=== PATIENT | female | born 1990 | race Caucasian/White ===

== ENCOUNTER 2017-10-07 09:33 | Emergency (ER) | payer BC ==
[2017-10-07 10:26] LABS: Absolute Lymphocytes (CBC) 1.1 K/uL (0.7-4.9); Absolute Monocytes 0.5 K/uL (0.1-1.3); Basophils % 0.3 % (0-1.3); Eosinophils % 0.4 % (0-4.4); Hematocrit 39.1 % (36.0-45.0); Lymphocytes % 16.1 % (15.3-44.8); MCH 27.5 pg (27.0-35.0); MCV 83.4 fL (80-100); MPV 8.3 fL (7.6-11.3); Monocytes % 7.5 % (3.3-12.3); RBC Red Blood Cell Count 4.68 M/uL (3.86-4.86)
[2017-10-07] MEDS ORDERED: IBUPROFEN 400 MG TAB ONE (10:34)
[2017-10-07] MEDS ORDERED: NA CHLORIDE 0.9% 1,000 ML ONE (10:34)
[2017-10-07] MEDS ORDERED: IBUPROFEN 200 MG TAB PO ONE (10:34)
[2017-10-07 10:37] LABS: Potassium 3.3 mEq/L (3.6-5.0)
--- NOTE | 2017-10-07 10:52 | RAD REPORT ---
EXAM DESCRIPTION: RAD - Chest Pa And Lat (2 Views) - 10/07/2017 10:46 am CLINICAL HISTORY: Cough and fever COMPARISON: 09/17/2017 FINDINGS: Right sided airspace opacity is seen in the inferior right base silhouetting the right hem idiaphragmatic leaflet compatible with right lower lobe pneumonia. The heart is normal in size. No di splaced fractures. Cholecystectomy clips. IMPRESSION: Right lower lobe pneumonia.
[2017-10-07] MEDS ORDERED: CEFTRIAXONE/SWI 1gm 1 GM/10 ML SYR ONE (12:01)
[2017-10-07] MEDS ORDERED: POTASSIUM CL SA 10 MEQ TAB PO ONE (12:01)
[2017-10-07] MEDS ORDERED: AZITHROMYCIN 250 MG TAB ONE (12:01)
--- NOTE | 2017-10-07 12:02 | ER ---
Nurse's Notes [facility] Name: Liz Epperson Age: 27 yrs Sex: Female : 1990 Arrival Date: 10/07/2017 Time: 09:37 Bed 14 Private MD: Diagnosis: Pneumonia, unspecified organism Presentation: 10/07 09:48 Presenting complaint: Patient states: i was having fever since September 17, went ot my hj PCP and tested for flu and strep, came back neg; fever continued, was ordered for xray that came back neg as well; now i have cough with phlegm, green colored; last night my temp was 103.8; took tylenol but not helping;. Transition of care: patient was not received from another setting of care. Onset of symptoms was October 07, 2017. Care prior to arrival: None. 09:48 Method Of Arrival: Ambulatory 09:48 Acuity: BECKY 3 Triage Assessment: 09:52 General: Appears in no apparent distress. uncomfortable, Behavior is calm, cooperative, hj appropriate for age. Pain: Denies pain. EENT: No signs and/or symptoms were reported regarding the EENT system. Neuro: Level of Consciousness is awake, alert, obeys commands, Oriented to person, place, time, situation. Cardiovascular: Heart tones S1 S2 present Capillary refill is > 3 seconds Patient's skin is warm and dry. Rhythm is sinus tachycardia. Respiratory: Airway is patent Respiratory effort is even, unlabored, Respiratory pattern is regular, symmetrical, GI: No signs and/or symptoms were reported involving the gastrointestinal system. : No signs and/or symptoms were reported regarding the genitourinary system. Derm: No signs and/or symptoms reported regarding the dermatologic system. Musculoskeletal: No signs and/or symptoms reported regarding the musculoskeletal system. 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 - Social history:: Smoking status: Patient/guardian denies using tobacco, Patient/guardian denies using alcohol. Screenin:54 Abuse screen: Denies threats or abuse. Denies injuries from another. Nutritional hj screening: No deficits noted. Tuberculosis screening: No symptoms or risk factors identified. Fall Risk None identified. Assessment: 09:55 Reassessment: see triage assessment;'. hj 10:10 General: Appears in no apparent distress. uncomfortable, Behavior is calm, cooperative, aj1 appropriate for age, Reports fever for > 3 days. Pain: Complains of pain in generalized body aches Pain currently is 3 out of 10 on a pain scale. Quality of pain is described as aching. Neuro: Level of Consciousness is awake, alert, obeys commands, Oriented to person, place, time, situation, Speech is normal, Facial symmetry appears normal. Cardiovascular: Patient's skin is warm and dry. Respiratory: Reports cough that is productive, Airway is patent Respiratory effort is even, unlabored, Respiratory pattern is regular, symmetrical, Breath sounds are clear bilaterally. Denies shortness of breath. Respiratory:. GI: No signs and/or symptoms were reported involving the gastrointestinal system. Patient currently denies diarrhea, nausea, vomiting. : No signs and/or symptoms were reported regarding the genitourinary system. EENT: Throat is reddened bilaterally Reports nasal congestion nasal discharge. EENT:. Derm: No signs and/or symptoms reported regarding the dermatologic system. Skin is pink, warm \T\ dry. normal. Musculoskeletal: No signs and/or symptoms reported regarding the musculoskeletal system. Circulation, motion, and sensation intact. 11:15 Reassessment: Patient appears in no apparent distress at this time. No changes from aj1 previously documented assessment. Patient and/or family updated on plan of care and expected duration. Pain level reassessed. Patient is alert, oriented x 3, equal unlabored respirations, skin warm/dry/pink. 12:21 Reassessment: Patient appears in no apparent distress at this time. No changes from aj1 previously documented assessment. Patient and/or family updated on plan of care and expected duration. Pain level reassessed. Patient is alert, oriented x 3, equal unlabored respirations, skin warm/dry/pink. Vital Signs: 09:53 BP 130 / 80; Pulse 115; Resp 18; Temp 100(O); Pulse Ox 98% on R/A; Weight 91.63 kg; hj Height 5 ft. 8 in. (172.72 cm); Pain 0/10; 10:52 BP 127 / 74; Pulse 89; Resp 15; Pulse Ox 98% on R/A; mh5 12:22 BP 116 / 73; Pulse 82; Resp 18; Pulse Ox 99% ; aj1 09:53 Body Mass Index 30.71 (91.63 kg, 172.72 cm) ED Course: 09:37 Patient arrived in ED. mr 09:44 Tasneem Kruger, CHRISTELLE is PHCP. kb 09:44 Edinson Lou MD is Attending Physician. kb 09:47 Donis Dia, AB is Primary Nurse. hj 09:50 Triage completed. hj 09:54 Arm band placed on right wrist. hj 09:54 Patient has correct armband on for positive identification. Bed in low position. Call light in reach. Side rails up X 1. 10:10 No provider procedures requiring assistance completed. Initial lab(s) drawn, by tori flynn sent to lab. Inserted saline lock: 22 gauge in left antecubital area, using aseptic technique. Blood collected. 10:37 Patient moved to radiology via wheelchair. la2 10:44 X-ray completed. Patient tolerated procedure well. Patient moved back from radiology. la2 12:28 IV discontinued, intact, bleeding controlled, No redness/swelling at site. Pressure iw dressing applied. Administered Medications: 10:23 Drug: NS 0.9% 1000 ml Route: IV; Rate: 1000 ml; Site: left antecubital; aj1 10:24 Drug: Motrin 600 mg Route: PO; aj1 12:30 Follow up: Response: No adverse reaction iw 10:24 CANCELLED (Duplicate Order): Ibuprofen 600 mg PO once kb 11:48 Drug: Rocephin 1 grams Route: IV; Rate: calculated rate; Site: left antecubital; aj1 12:30 Follow up: IV Status: Completed infusion iw 11:48 Drug: Zithromax 500 mg Route: PO; aj1 12:29 Follow up: Response: No adverse reaction iw 11:48 Drug: Potassium Chloride 20 mEq Route: PO; aj1 12:29 Follow up: Response: No adverse reaction iw Outcome: 12:02 Discharge ordered by . lidia 12:28 Discharged to home ambulatory. iw 12:28 Condition: good 12:28 Discharge instructions given to patient, Instructed on discharge instructions, follow up and referral plans. medication usage, Demonstrated understanding of instructions, follow-up care, medications, Prescriptions given X 1. 12:30 Patient left the ED. Signatures: Tasneem Kruger, BUSINESS OFFICE REPRESENTATIVE-C BUSINESS OFFICE REPRESENTATIVE-Ckb Chayo Neri RN RN Priya Hartley Irene, RN RN Donis Dia RN RN hj Martinez, Maria [facility] Theresa Gilbert
--- NOTE | 2017-10-07 12:02 | EDPHYS ---
Physician Documentation [facility] Name: Liz Epperson Age: 27 yrs Sex: Female : 1990 Arrival Date: 10/07/2017 Time: 09:37 Bed 14 Private MD: ED Physician Edinson Lou HPI: 10/07 10:56 This 27 yrs old Female presents to ER via Ambulatory with complaints of Fever.kb 10:56 The patient or guardian reports cough, that is intermittent, described as mild, with no kb sputum, flu symptoms, arthralgias, low-grade fever, myalgias. Onset: The symptoms/episode began/occurred 1 month(s) ago. Severity of symptoms: At their worst the symptoms were mild, moderate, in the emergency department the symptoms are unchanged. Modifying factors: The symptoms are alleviated by nothing, the symptoms are aggravated by nothing. Associated signs and symptoms: Pertinent positives: fever, rhinorrhea, Pertinent negatives: chest pain, diarrhea, ear ache, nausea, sore throat, vomiting. The patient has not experienced similar symptoms in the past. The patient has not recently seen a physician. 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 - Social history:: Smoking status: Patient/guardian denies using tobacco, Patient/guardian denies using alcohol. ROS: 10:41 Cardiovascular: Negative for chest pain, palpitations, and edema, Abdomen/GI: Negative kb for abdominal pain, nausea, vomiting, diarrhea, and constipation, Back: Negative for injury and pain, : Negative for injury, bleeding, discharge, and swelling, MS/Extremity: Negative for injury and deformity, Skin: Negative for injury, rash, and discoloration, Neuro: Negative for headache, weakness, numbness, tingling, and seizure. 10:41 Constitutional: Positive for chills, fatigue, fever, malaise, Negative for body aches, poor PO intake, weight loss. 10:41 ENT: Positive for rhinorrhea, sinus congestion. 10:41 Respiratory: Positive for cough, with no reported sputum, Negative for dyspnea on exertion, hemoptysis, orthopnea, pleurisy, shortness of breath, sputum production, wheezing. Exam: 10:41 Constitutional: This is a well developed, well nourished patient who is awake, alert, kb and in no acute distress. Head/Face: Normocephalic, atraumatic. Neck: Trachea midline, no thyromegaly or masses palpated, and no cervical lymphadenopathy. Supple, full range of motion without nuchal rigidity, or vertebral point tenderness. No Meningismus. Chest/axilla: Normal chest wall appearance and motion. Nontender with no deformity. No lesions are appreciated. Cardiovascular: Regular rate and rhythm with a normal S1 and S2. No gallops, murmurs, or rubs. Normal PMI, no JVD. No pulse deficits. Respiratory: Lungs have equal breath sounds bilaterally, clear to auscultation and percussion. No rales, rhonchi or wheezes noted. No increased work of breathing, no retractions or nasal flaring. Abdomen/GI: Soft, non-tender, with normal bowel sounds. No distension or tympany. No guarding or rebound. No evidence of tenderness throughout. Skin: Warm, dry with normal turgor. Normal color with no rashes, no lesions, and no evidence of cellulitis. MS/ Extremity: Pulses equal, no cyanosis. Neurovascular intact. Full, normal range of motion. Neuro: Awake and alert, GCS 15, oriented to person, place, time, and situation. Cranial nerves II-XII grossly intact. Motor strength 5/5 in all extremities. Sensory grossly intact. Cerebellar exam normal. Normal gait. 10:41 ENT: External ear(s): are unremarkable, Ear canal(s): are normal, TM's: fluid levels, on the left, Examination of the other ear shows no obvious abnormality, Nose: is normal, Mouth: is normal, Posterior pharynx: Airway: normal, Tonsils: with erythema, Uvula: normal, midline, swelling, is not appreciated, erythema, that is mild, exudate, is not appreciated. Vital Signs: 09:53 BP 130 / 80; Pulse 115; Resp 18; Temp 100(O); Pulse Ox 98% on R/A; Weight 91.63 kg; hj Height 5 ft. 8 in. (172.72 cm); Pain 0/10; 10:52 BP 127 / 74; Pulse 89; Resp 15; Pulse Ox 98% on R/A; mh5 12:22 BP 116 / 73; Pulse 82; Resp 18; Pulse Ox 99% ; aj1 09:53 Body Mass Index 30.71 (91.63 kg, 172.72 cm) hj MDM: 09:49 Patient medically screened. kb 10:41 Data reviewed: vital signs, nurses notes. Data interpreted: Pulse oximetry: on room air kb is 98 %. Interpretation: normal. 11:21 Counseling: I had a detailed discussion with the patient and/or guardian regarding: the kb historical points, exam findings, and any diagnostic results supporting the discharge/admit diagnosis, lab results, radiology results, the need for outpatient follow up, a family practitioner, to return to the emergency department if symptoms worsen or persist or if there are any questions or concerns that arise at home. 10/07 09:49 Order name: CBC with Diff kb 10/07 09:49 Order name: Basic Metabolic Panel kb 10/07 09:49 Order name: Lucas Screen Profile kb 10/07 09:52 Order name: Flu kb 10/07 09:52 Order name: Strep kb 10/07 10:27 Order name: CBC with Automated Diff; Complete Time: 10:30 EDMS 10/07 09:49 Order name: Chest Pa And Lat (2 Views) XRAY kb 10/07 10:37 Order name: Basic Metabolic Panel; Complete Time: 10:38 EDMS 10/07 10:40 Order name: Influenza Screen (A ; Complete Time: 10:40 EDMS 10/07 10:40 Order name: Group A Streptococcus Rapid Sc; Complete Time: 10:40 EDMS 10/07 10:52 Order name: RAD; Complete Time: 10:59 EDMS 10/07 11:01 Order name: Lucas Screen; Complete Time: 11:03 EDMS 10/07 09:49 Order name: IV Start; Complete Time: 09:55 kb Administered Medications: 10:23 Drug: NS 0.9% 1000 ml Route: IV; Rate: 1000 ml; Site: left antecubital; aj1 10:24 Drug: Motrin 600 mg Route: PO; aj1 12:30 Follow up: Response: No adverse reaction iw 10:24 CANCELLED (Duplicate Order): Ibuprofen 600 mg PO once kb 11:48 Drug: Rocephin 1 grams Route: IV; Rate: calculated rate; Site: left antecubital; aj1 12:30 Follow up: IV Status: Completed infusion iw 11:48 Drug: Zithromax 500 mg Route: PO; aj1 12:29 Follow up: Response: No adverse reaction iw 11:48 Drug: Potassium Chloride 20 mEq Route: PO; aj1 12:29 Follow up: Response: No adverse reaction iw Disposition: 14:00 Co-signature as Attending Physician, Edinson Lou MD I agree with the assessment and kdr plan of care. Disposition: 10/07/17 12:02 Discharged to Home. Impression: Pneumonia, unspecified organism. - Condition is Stable. - Discharge Instructions: Pneumonia, Adult, [id number]. - Prescriptions for Zithromax 500 mg Oral Tablet - take 1 tablet by ORAL route once daily for 5 days; 5 tablet. - Medication Reconciliation Form, Thank You Letter, Antibiotic Education, Prescription Opioid Use form. - Follow up: Emergency Department; When: As needed; Reason: Worsening of condition. Follow up: Private Physician; When: 2 - 3 days; Reason: Recheck today's complaints, Continuance of care, Re-evaluation by your physician. Signatures: Dispatcher [employer] EDTasneem Nixon, SHAGUFTA-C SHAGUFTA-Chayo Khan RN RN aj1 Edinson Lou MD MD [facility] Maxine Costa RN RN Donis Dia RN RN Corrections: (The following items were deleted from the chart) 10:24 10:23 Ibuprofen 600 mg PO once ordered. kb kb
== END 2017-10-07 12:30 | disposition home or self-care (01) ==
LOC: ER 09:33
DX: J18.9 Pneumonia, unspecified organism (principal); E03.9 Hypothyroidism, unspecified; Z91.040 Latex allergy status; Z91.048 Other nonmedicinal substance allergy status
CPT/HCPCS: 36415; 71046; 80048; 85025; 86308; 87070; 87081; 87804; 96365; 99284; J0696; J7030

== ENCOUNTER 2018-04-03 20:08 | Emergency (ER) | payer BC ==
--- NOTE | 2018-04-03 21:09 | ER ---
Nurse's Notes [facility] Name: Liz Epperson Age: 28 yrs Sex: Female : 1990 Arrival Date: 04/03/2018 Time: 20:13 Bed 25 Private MD: Alejandrina Wood Diagnosis: Cellulitis of face Presentation: 04/03 20:18 Presenting complaint: Patient states: Abscess to left cheek for 3 days. Given aj Dicloxacillin. Transition of care: patient was not received from another setting of care. Onset of symptoms was April 03, 2018. Risk Assessment: Do you want to hurt yourself or someone else? Patient reports no desire to harm self or others. Initial Sepsis Screen: Does the patient meet any 2 criteria? No. Patient's initial sepsis screen is negative. Does the patient have a suspected source of infection? No. Patient's initial sepsis screen is negative. Care prior to arrival: None. 20:18 Method Of Arrival: Ambulatory aj 20:18 Acuity: BECKY 3 aj Triage Assessment: 20:20 General: Appears in no apparent distress. comfortable, Behavior is calm, cooperative, aj appropriate for age. Pain: Complains of pain in left zygomatic area. Neuro: Level of Consciousness is awake, alert, obeys commands, Oriented to person, place, time, situation, Appropriate for age. Respiratory: Airway is patent Respiratory effort is even, unlabored, Respiratory pattern is regular, symmetrical. Derm: Abscess located on left zygomatic area. 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 - Social history:: Smoking status: Patient/guardian denies using tobacco. - Ebola Screening: : Patient negative for fever greater than or equal to 101.5 degrees Fahrenheit, and additional compatible Ebola Virus Disease symptoms Patient denies exposure to infectious person Patient denies travel to an Ebola-affected area in the 21 days before illness onset No symptoms or risks identified at this time. Screenin/16 00:27 Abuse screen: Denies threats or abuse. Denies injuries from another. Nutritional mg2 screening: No deficits noted. Tuberculosis screening: No symptoms or risk factors identified. Fall Risk IV access (20 points). Assessment: 04/03 20:35 General: Appears uncomfortable, well groomed, well developed, well nourished, Behavior mg2 is calm, cooperative, appropriate for age. Pain: Complains of pain in face and left zygomatic area Pain currently is 10 out of 10 on a pain scale. Neuro: Level of Consciousness is awake, alert, obeys commands, Oriented to person, place, time, situation, Appropriate for age. Cardiovascular: Patient's skin is warm and dry. Respiratory: Airway is patent Respiratory effort is even, unlabored, Respiratory pattern is regular, symmetrical. GI: No signs and/or symptoms were reported involving the gastrointestinal system. : No signs and/or symptoms were reported regarding the genitourinary system. EENT: No signs and/or symptoms were reported regarding the EENT system. Derm: Abscess located on left cheek. Derm: Reports has been on Doxycycline, Bactroban s/s just getting worse. Musculoskeletal: No signs and/or symptoms reported regarding the musculoskeletal system. 22:20 Reassessment: Patient appears in no apparent distress at this time. No changes from mg2 previously documented assessment. Patient and/or family updated on plan of care and expected duration. Pain level reassessed. Patient is alert, oriented x 3, equal unlabored respirations, skin warm/dry/pink. awaiting CT results. 04/04 01:04 Reassessment: Patient appears in no apparent distress at this time. Patient and/or mg2 family updated on plan of care and expected duration. Pain level reassessed. Patient is alert, oriented x 3, equal unlabored respirations, skin warm/dry/pink. patient for discharge but still on iv antibiotic. 01:23 Reassessment: Patient appears in no apparent distress at this time. Patient and/or mg2 family updated on plan of care and expected duration. Pain level reassessed. Patient is alert, oriented x 3, equal unlabored respirations, skin warm/dry/pink. Vital Signs: 04/03 20:21 BP 128 / 69; Pulse 95; Resp 17; Temp 98.6; Pulse Ox 100% on R/A; Weight 86.18 kg; aj Height 5 ft. 8 in. (172.72 cm); 22:20 BP 101 / 60; Pulse 86; Resp 18; Pulse Ox 100% on R/A; mg2 04/04 00:26 BP 105 / 73; Pulse 77; Resp 18; Pulse Ox 100% on R/A; mg2 01:23 BP 110 / 70; Pulse 80; Resp 18; Pulse Ox 100% on R/A; Pain 0/10; mg2 04/03 20:21 Body Mass Index 28.89 (86.18 kg, 172.72 cm) aj ED Course: 04/03 20:13 Patient arrived in ED. ds1 20:14 Alejandrina Wood is Private Physician. ds1 20:19 Triage completed. aj 20:21 Arm band placed on left wrist. Patient placed in an exam room. aj 20:30 Nader Sevilla, AB is Primary Nurse. mg2 20:33 Dereck Gonsalves NP is PHCP. pm1 20:33 William Rosas MD is Attending Physician. pm1 21:14 Christiano Carrasco MD is Referral Physician. pm1 22:00 CT completed. Patient moved to CT via wheelchair. Patient moved back from CT. cw1 22:02 CT Facial Bones W/ Con \T\ Mpr In Process Unspecified. EDMS 04/04 00:27 No provider procedures requiring assistance completed. Inserted saline lock: 20 gauge mg2 in left antecubital area, using aseptic technique. Blood collected. 00:28 Patient has correct armband on for positive identification. Pulse ox on. NIBP on. mg2 00:55 First set of blood cultures drawn by me, Second set of blood cultures drawn by me. mg2 01:24 IV discontinued, intact, bleeding controlled, No redness/swelling at site. Pressure mg2 dressing applied. Administered Medications: 04/03 21:16 Drug: [place] 5 mg-325 mg 1 tabs Route: PO; mg2 21:17 Follow up: Response: No adverse reaction; Medication administered at discharge. mg2 21:17 Drug: Bactrim (160 mg-800 mg (DS) 1 tablet Route: PO; mg2 21:17 Follow up: Response: No adverse reaction; Medication administered at discharge. mg2 04/04 01:02 Drug: Clindamycin 900 mg Route: IVPB; Infused Over: 30 mins; Site: left antecubital; mg2 01:24 Follow up: Response: No adverse reaction; IV Status: Completed infusion mg2 Outcome: 04/03 21:09 Discharge ordered by MD. pm1 04/04 00:41 Discharge ordered by MD. pm1 01:24 Discharged to home ambulatory, with family. mg2 01:24 Condition: stable 01:24 Discharge instructions given to patient, family, Instructed on discharge instructions, follow up and referral plans. medication usage, Demonstrated understanding of instructions, follow-up care, medications, Prescriptions given X 2. 01:25 Patient left the ED. mg2 Signatures: Dispatcher [employer] EDAury Davis, Viki Vizcarra RN ds1 Tameka Blanco cw1 Dereck Gonsalves NP RESIDENTIAL SUPERVISOR pm1 Nader Sevilla RN RN mg2 Corrections: (The following items were deleted from the chart) 00:28 00:26 Pulse 77bpm; Resp 18bpm; Pulse Ox 100% RA; mg2 mg2
--- NOTE | 2018-04-03 21:09 | EDPHYS ---
Physician Documentation [facility] Name: Liz Epperson Age: 28 yrs Sex: Female : 1990 Arrival Date: 04/03/2018 Time: 20:13 Bed 25 Private MD: Alejandrina Wood ED Physician William Rosas HPI: 04/03 21:30 This 28 yrs old Female presents to ER via Ambulatory with complaints of pm1 Infected Bite. 21:30 The patient presents with cellulitis of the left zygomatic area. Onset: The pm1 symptoms/episode began/occurred 3 day(s) ago. Possible cause(s): insect sting. Associated signs and symptoms: Pertinent positives: drainage, Pertinent negatives: fever, nausea, vomiting. Modifying factors: the symptoms are alleviated by nothing, the symptoms are aggravated by nothing. Severity of symptoms: in the emergency department the symptoms are unchanged. The patient has not experienced similar symptoms in the past. The patient has been recently seen by a physician: the patient's primary care provider, with similar presenting complaints, and apparently given a diagnosis of cellutlitis, was given a prescription for antibiotics, dicloxacillin 500 mg PO QID. Patient just started her abx medications yesterday. [employer]: 20:21 LMP 03/28/2018 aj Historical: - Allergies: 20:20 Latex, Natural Rubber; aj - Home Meds: 20:20 Claritin 10 mg Oral tab 1 tab once daily [Active]; Nasonex 50 mcg/actuation Nasal spry aj 2 sprays once daily [Active]; 20:21 Topamax Oral [Active]; Wellbutrin Oral [Active]; aj - PMHx: 20:20 Asthma; Hypothyroidism; Migraines; pseudotumor; aj - PSHx: 20:20 Cholecystectomy; ; aj - Immunization history:: Adult Immunizations up to date. - Social history:: Smoking status: Patient/guardian denies using tobacco. - Ebola Screening: : Patient negative for fever greater than or equal to 101.5 degrees Fahrenheit, and additional compatible Ebola Virus Disease symptoms Patient denies exposure to infectious person Patient denies travel to an Ebola-affected area in the 21 days before illness onset No symptoms or risks identified at this time. ROS: 21:30 Constitutional: Negative for fever, chills, and weight loss, Eyes: Negative for injury, pm1 pain, redness, and discharge, ENT: Negative for injury, pain, and discharge, Neck: Negative for injury, pain, and swelling, Cardiovascular: Negative for chest pain, palpitations, and edema, Respiratory: Negative for shortness of breath, cough, wheezing, and pleuritic chest pain, Abdomen/GI: Negative for abdominal pain, nausea, vomiting, diarrhea, and constipation, Back: Negative for injury and pain, MS/Extremity: Negative for injury and deformity. 21:30 Neuro: Negative for headache, weakness, numbness, tingling, and seizure. 21:30 Skin: Positive for cellulitis, of the left zygomatic area. Exam: 21:30 Constitutional: This is a well developed, well nourished patient who is awake, alert, pm1 and in no acute distress. Head/Face: Normocephalic, atraumatic. Eyes: Pupils equal round and reactive to light, extra-ocular motions intact. Lids and lashes normal. Conjunctiva and sclera are non-icteric and not injected. Cornea within normal limits. Periorbital areas with no swelling, redness, or edema. ENT: Nares patent. No nasal discharge, no septal abnormalities noted. Tympanic membranes are normal and external auditory canals are clear. Oropharynx with no redness, swelling, or masses, exudates, or evidence of obstruction, uvula midline. Mucous membranes moist. Neck: Trachea midline, no thyromegaly or masses palpated, and no cervical lymphadenopathy. Supple, full range of motion without nuchal rigidity, or vertebral point tenderness. No Meningismus. Chest/axilla: Normal chest wall appearance and motion. Nontender with no deformity. No lesions are appreciated. Cardiovascular: Regular rate and rhythm with a normal S1 and S2. No gallops, murmurs, or rubs. Normal PMI, no JVD. No pulse deficits. Respiratory: Lungs have equal breath sounds bilaterally, clear to auscultation and percussion. No rales, rhonchi or wheezes noted. No increased work of breathing, no retractions or nasal flaring. Abdomen/GI: Soft, non-tender, with normal bowel sounds. No distension or tympany. No guarding or rebound. No evidence of tenderness throughout. Back: No spinal tenderness. No costovertebral tenderness. Full range of motion. 21:30 MS/ Extremity: Pulses equal, no cyanosis. Neurovascular intact. Full, normal range of motion. 21:30 Skin: Appearance: normal except for affected area, cellulitis, on the left zygomatic area, 2 cm x 2 cm area. Needle aspiration without any drainage or purulence. 21:30 Neuro: Orientation: is normal, Motor: moves all fours. Vital Signs: 20:21 BP 128 / 69; Pulse 95; Resp 17; Temp 98.6; Pulse Ox 100% on R/A; Weight 86.18 kg; aj Height 5 ft. 8 in. (172.72 cm); 22:20 BP 101 / 60; Pulse 86; Resp 18; Pulse Ox 100% on R/A; mg2 04/04 00:26 BP 105 / 73; Pulse 77; Resp 18; Pulse Ox 100% on R/A; mg2 01:23 BP 110 / 70; Pulse 80; Resp 18; Pulse Ox 100% on R/A; Pain 0/10; mg2 04/03 20:21 Body Mass Index 28.89 (86.18 kg, 172.72 cm) aj MDM: 04/03 20:42 Patient medically screened. pm1 21:04 Data reviewed: vital signs. Data interpreted: Pulse oximetry: on room air is 100 %. pm1 Interpretation: normal. Counseling: I had a detailed discussion with the patient and/or guardian regarding: the historical points, exam findings, and any diagnostic results supporting the discharge/admit diagnosis, the need for outpatient follow up, to return to the emergency department if symptoms worsen or persist or if there are any questions or concerns that arise at home. 21:30 ED course: Patient requested further evaluation. Informed the patient that it would pm1 unlikely change the course of treatment but she is comfortable going home without it. Therefore I will order CBC, BMP, blood cultures, and CT facial. 04/04 00:40 Counseling: I had a detailed discussion with the patient and/or guardian regarding: the pm1 historical points, exam findings, and any diagnostic results supporting the discharge/admit diagnosis, lab results, radiology results, the need for outpatient follow up, to return to the emergency department if symptoms worsen or persist or if there are any questions or concerns that arise at home. 04/03 21:32 Order name: CBC with Diff; Complete Time: 22:16 pm1 04/03 21:32 Order name: BMP; Complete Time: 22:16 pm1 04/03 21:32 Order name: CT Facial Bones W/ Con \T\ Mpr pm1 04/03 21:32 Order name: Blood Culture Adult (2) pm1 04/03 21:32 Order name: IV Saline Lock; Complete Time: 22:16 pm1 Administered Medications: 04/03 21:16 Drug: [place] 5 mg-325 mg 1 tabs Route: PO; mg2 21:17 Follow up: Response: No adverse reaction; Medication administered at discharge. mg2 21:17 Drug: Bactrim (160 mg-800 mg (DS) 1 tablet Route: PO; mg2 21:17 Follow up: Response: No adverse reaction; Medication administered at discharge. mg2 04/04 01:02 Drug: Clindamycin 900 mg Route: IVPB; Infused Over: 30 mins; Site: left antecubital; mg2 01:24 Follow up: Response: No adverse reaction; IV Status: Completed infusion mg2 Disposition: 04/04/18 00:41 Discharged to Home. Impression: Cellulitis of face. - Condition is Stable. - Discharge Instructions: Cellulitis, Adult. - Prescriptions for Clindamycin HCl 300 mg Oral Capsule - take 1 capsule by ORAL route every 6 hours for 10 days; 40 capsule. Tylenol- Codeine #3 300-30 mg Oral Tablet - take 2 tablets by ORAL route every 6 hours As needed; 20 tablet. - Medication Reconciliation Form, Thank You Letter, Antibiotic Education, Prescription Opioid Use form. - Follow up: Private Physician; When: 2 - 3 days; Reason: Recheck today's complaints, Continuance of care, Re-evaluation by your physician. - Problem is new. - Symptoms have improved. Addendum: 04/05/2018 03:03 Co-signature as Attending Physician, William Rosas MD. g s Signatures: Dispatcher [employer] Aury Weathers RN RN Dereck Rosario, IT APPLICATION ADMINISTRATOR IT APPLICATION ADMINISTRATOR pm1 William Rosas MD MD Nader Sevilla RN RN mg2 Corrections: (The following items were deleted from the chart) 04/03 21:14 21:09 04/03/2018 21:09 Discharged to Home. Impression: Cellulitis of face. Condition is pm1 Stable. Forms are Medication Reconciliation Form, Thank You Letter, Antibiotic Education, Prescription Opioid Use. Follow up: Emergency Department; When: As needed; Reason: Worsening of condition. Follow up: Private Physician; When: 2 - 3 days; Reason: Recheck today's complaints, Continuance of care, Re-evaluation by your physician. Problem is new. Symptoms have improved. pm1 22:16 21:14 04/03/2018 21:09 Discharged to Home. Impression: Cellulitis of face. Condition is pm1 Stable. Discharge Instructions: Cellulitis, Adult. Prescriptions for Bactrim DS 800-160 mg Oral Tablet - take 1 tablet by ORAL route every 12 hours for 10 days; 20 tablet, Tylenol-Codeine #3 300-30 mg Oral Tablet - take 2 tablets by ORAL route every 6 hours As needed; 20 tablet. and Forms are Medication Reconciliation Form, Thank You Letter, Antibiotic Education. Follow up: Emergency Department; When: As needed; Reason: Worsening of condition. Follow up: Private Physician; When: 2 - 3 days; Reason: Recheck today's complaints, Continuance of care, Re-evaluation by your physician. Follow up: Christiano Carrasco; When: 2 - 3 days; Reason: Recheck today's complaints, Continuance of care, Re-evaluation by your physician. Problem is new. Symptoms have improved. pm1 04/04 01:25 00:41 04/04/2018 00:41 Discharged to Home. Impression: Cellulitis of face. Condition is mg2 Stable. Prescriptions for Bactrim DS 800-160 mg Oral Tablet - take 1 tablet by ORAL route every 12 hours for 10 days; 20 tablet, Tylenol-Codeine #3 300-30 mg Oral Tablet - take 2 tablets by ORAL route every 6 hours As needed; 20 tablet. and Forms are Medication Reconciliation Form, Thank You Letter, Antibiotic Education, Prescription Opioid Use. Follow up: Private Physician; When: 2 - 3 days; Reason: Recheck today's complaints, Continuance of care, Re-evaluation by your physician. Problem is new. Symptoms have improved. pm1
[2018-04-03] MEDS ORDERED: HYDROCODONE/APAP 5/325 MG TAB ONE (21:20)
[2018-04-03] MEDS ORDERED: SMZ./TMP. 800/160 MG TABLET ONE (21:20)
[2018-04-03 21:51] LABS: Absolute Lymphocytes (CBC) 2.8 K/uL (0.7-4.9); Absolute Monocytes 0.9 K/uL (0.1-1.3); Absolute Neutrophil 8.5 K/uL (1.8-8.0); Basophils % 0.5 % (0-1.3); Eosinophils % 1.9 % (0-4.4); Hematocrit 37.6 % (36.0-45.0); Lymphocytes % 22.7 % (15.3-44.8); MCH 29.6 pg (27.0-35.0); MCV 90.7 fL (80-100); MPV 8.3 fL (7.6-11.3); Monocytes % 6.9 % (3.3-12.3); RBC Red Blood Cell Count 4.15 M/uL (3.86-4.86)
[2018-04-03 22:08] LABS: Potassium 3.8 mmol/L (3.5-5.1)
[2018-04-04] MEDS ORDERED: CLINDAMYCIN 900MG/D5W 900 MG/50 ML BAG IV ONE (00:49)
--- NOTE | 2018-04-04 08:47 | RAD REPORT ---
EXAM DESCRIPTION: CT - Facial Bones W Con Mpr - 04/03/2018 10:02 pm CLINICAL HISTORY: Left cheek abscess, left-sided facial pain A preliminary report was provided at the time of the study and reviewed prior to final report. COMPARISON: None. TECHNIQUE: Axial 2 millimeter thick images of the facial bones were obtained with sagittal and coron al reconstruction imaging. Dynamic enhancement using nonionic IV contrast. All CT scans are performed using dose optimization technique as appropriate and may include automated exposure control or mA/KV adjustment according to patient size. FINDINGS: Intracranial portion the examination is unremarkable. No globe or orbital content abnormal ity. Mastoid air cells are clear. No acute paranasal sinus finding. Edematous/inflammatory stranding is seen in the subcutaneous fatty tissues overlying the left-side ma ndible and lower maxilla region. No air or foreign body identified. This does appear to be both super ficial and deep to the platysma. There is minimal secondary involvement of the left mastoid or muscle . No measurable involvement of the left parotid gland. No acute bone finding. No significant dental decay identifiable. IMPRESSION: Infectious/inflammatory stranding in the fatty tissues over the left-side mandible and l ower maxilla. No air, foreign body for abscess.
== END 2018-04-04 01:25 | disposition home or self-care (01) ==
LOC: ER 20:08
DX: L03.211 Cellulitis of face (principal); E03.9 Hypothyroidism, unspecified; J45.909 Unspecified asthma, uncomplicated; Z91.040 Latex allergy status; Z91.048 Other nonmedicinal substance allergy status
CPT/HCPCS: 36415; 70487; 76377; 80048; 85025; 87040; 96365; 99284; Q9967